=== PATIENT | male | born 1995 ===

== ENCOUNTER 2018-01-27 14:39 | Emergency (ER) | payer MEDICAID ==
[2018-01-27 14:40] VITALS: BMI 24.1
[2018-01-27 15:09] VITALS: RESP 16
--- NOTE | 2018-01-27 16:38 | US ---
Date of service: 01/27/2018 HISTORY: pain, swelling, hx of torsion TECHNIQUE: Realtime sonography through the scrotum with color and doppler flow. COMPARISON: 11/29/2015 bilateral testicular ultrasound FINDINGS: RIGHT TESTICLE: Measures 1.9 x 2.6 x 5.2 cm. Normal echotexture and flow. RIGHT EPIDIDYMIS: Epididymal head measures 1 x 0.6 x 1.1 cm. She LEFT TESTICLE: Measures 2.4 x 4.4 x 3 cm. Normal echotexture and flow. LEFT EPIDIDYMIS: Epididymal head measures 0.6 x 0.9 x 1.2 cm. Grossly unremarkable appearance with normal flow. HYDROCELE: Trace left hydrocele VARICOCELE: None. OTHER FINDINGS: None. IMPRESSION: Negative study for torsion, epididymitis, orchitis or testicular mass.
[2018-01-27 16:40] VITALS: O2SAT 98
[2018-01-27 16:54] LABS: URINE BACTERIA FEW (<OCC); URINE BILIRUBIN NEGATIVE (NEGATIVE); URINE BLOOD NEGATIVE (NEGATIVE); URINE CLARITY SLIGHTY-CLOUDY (Clear); URINE COLOR YELLOW (YELLOW); URINE GLUCOSE (UA) NEG (NEGATIVE); URINE LEUKOCYTE ESTERASE NEG Leu/uL (Negative); URINE PROTEIN 30 mg/dL (NEGATIVE)
[2018-01-27 17:00] LABS: URINE AMORPHOUS SEDIMENT FEW /ul (<OCC)
--- NOTE | 2018-01-27 18:17 | ED PDOC ---
HPI: Male Pain Time Seen by Provider: 01/27/18 15:01 Chief Complaint (Nursing): Male Genitourinary Past Medical History Vital Signs: Last Vital Signs Temp 98.3 F 01/27/18 16:38 Pulse 70 01/27/18 16:38 Resp 16 01/27/18 16:38 BP 122/70 01/27/18 16:38 Pulse Ox 98 01/27/18 16:38 - Medical History PMH: Denies: Chronic Kidney Disease - Family History Family History: States: Unknown Family Hx - Immunization History Hx Tetanus Toxoid Vaccination: No Hx Influenza Vaccination: No Hx Pneumococcal Vaccination: No - Home Medications Home Medications: Ambulatory Orders Medication Instructions Recorded Acetaminophen/Codeine 1 ea PO Q6 PRN #10 tab 08/22/17 [Tylenol/Codeine 300 MG/30 MG] - Allergies Allergies/Adverse Reactions: Allergies Allergy/AdvReac Type Severity Reaction Status Date / Time No Known Allergies Allergy Verified 08/22/17 22:20 - ECG O2 Sat by Pulse Oximetry: 98 Disposition - Clinical Impression Clinical Impression: Testicular pain, left - Patient ED Disposition Is Patient to be Admitted: No Counseled Patient/Family Regarding: Diagnosis, Need For Followup - Disposition Referrals: Malcolm Dawson MD [Medical Doctor] - Disposition: Routine/Home Disposition Time: 18:16 Condition: GOOD Additional Instructions: Motrin as needed for pain. Please follow-up with urologist. Instructions: How to Perform a Testicular Self-Exam Forms: [employer] (Urdu)
[2018-01-27 18:59] VITALS: BP 118/68; PULSE 68; TEMP 97.8
== END 2018-01-27 18:45 | disposition home or self-care (01) ==
LOC: H.ER 14:39
DX: N50.819 Testicular pain, unspecified (principal)

== ENCOUNTER 2018-02-12 15:00 | Emergency (ER) | payer MEDICAID ==
[2018-02-12 15:01] VITALS: BMI 24.1
--- NOTE | 2018-02-12 15:32 | ED PDOC ---
HPI: Influenza Time Seen by Provider: 02/12/18 15:14 Chief Complaint: Flu-like Symptoms Chief Complaint (Provider): Flu-like Symptoms History Per: Patient Exam Limitations: no limitations Have you had recent travel within the past 21 days to any of: No Onset/Duration Of Symptoms: Days (x3) Sick Contacts (Context): None Additional complaint(s):: Patient is a 22 y/o male with no significant PMHx who presents to the ED for evaluation of flu-like symptoms, onset three days ago. The pt reports of experiencing fever, chills, body aches, cough productive of white sputum, and generalized weakness. The pt reports of 2 episodes of non bloody, non-bilious vomiting and 2 episodes of watery, non-bloody diarrhea last night. Pt notes of a sore throat this morning. Pt reports of taking Naprocyn with minimal relief. The pt denies recent travel and sick contacts. PCP: none provided Past Medical History Reviewed: Historical Data, Nursing Documentation, Vital Signs Vital Signs: Last Vital Signs Temp 100.6 F H 02/12/18 15:08 Pulse 92 H 02/12/18 15:08 Resp 20 02/12/18 15:08 BP 113/50 L 02/12/18 15:08 Pulse Ox 96 02/12/18 15:08 - Medical History PMH: No Chronic Diseases Denies: Chronic Kidney Disease - Surgical History Other surgeries: Testicular Torsion - Family History Family History: States: No Known Family Hx - Social History Current smoker - smoking cessation education provided: No - Immunization History Hx Tetanus Toxoid Vaccination: No Hx Influenza Vaccination: No Hx Pneumococcal Vaccination: No - Home Medications Home Medications: Ambulatory Orders Medication Instructions Recorded RX: Acetaminophen/Codeine 1 ea PO Q6 PRN #10 tab 08/22/17 [Tylenol/Codeine 300 MG/30 MG] Oseltamivir Cap [Tamiflu] 75 mg PO BID #10 cap 02/12/18 RX: Acetaminophen [Tylenol Extra 1,000 mg PO Q6 PRN #60 tablet 02/12/18 Strength] RX: Ibuprofen [Motrin Tab] 600 mg PO Q8 PRN #60 tab 02/12/18 - Allergies Allergies/Adverse Reactions: Allergies Allergy/AdvReac Type Severity Reaction Status Date / Time No Known Allergies Allergy Verified 02/12/18 15:07 Review of Systems ROS Statement: Except As Marked, All Systems Reviewed And Found Negative (as per HPI) Constitutional: Positive for: Fever, Chills, Weakness, Other (Body Aches) ENT: Positive for: Throat Pain (Sore) Respiratory: Positive for: Cough (white sputum). Negative for: Hemoptysis Gastrointestinal: Positive for: Vomiting (x2 episodes), Diarrhea (x2 episodes) Physical Exam - Reviewed Nursing Documentation Reviewed: Yes Vital Signs Reviewed: Yes - Physical Exam Appears: Positive for: No Acute Distress (but febrile and tired appearing) Head Exam: Positive for: ATRAUMATIC, NORMOCEPHALIC Skin: Positive for: Warm, Dry Eye Exam: Positive for: EOMI, PERRL ENT: Positive for: Tonsillar Swelling, Other (Bilateral Erythematous Tonsils; Moist Mucuous Membrane). Negative for: Tonsillar Exudate Neck: Positive for: Painless ROM, Supple Cardiovascular/Chest: Positive for: Regular Rate, Rhythm, Chest Non Tender. Negative for: Murmur Respiratory: Positive for: Normal Breath Sounds. Negative for: Rales, Wheezing, Respiratory Distress Gastrointestinal/Abdominal: Positive for: Soft. Negative for: Tenderness Back: Positive for: Normal Inspection Extremity: Positive for: Normal ROM. Negative for: Deformity Lymphatic: Negative for: Adenopathy Neurologic/Psych: Positive for: Alert. Negative for: Motor/Sensory Deficits Medical Decision Making Medical Decision Making: Time: 1524 Impression: Flu like illness DDx includes but not limited to PNA, Strep Throat, and Viral Syndrome. Plan: - CXR (Two Views) - Tamiflu 75 mg PO - Toradol 30 mg IM - Tylenol 975 mg PO - Zofran 4 mg PO - Rapid Strep Group A Antigen Time:1550 CXR FINDINGS: LUNGS: No active pulmonary disease. PLEURA: No significant pleural effusion identified. No pneumothorax apparent. CARDIOVASCULAR: No aortic atherosclerotic calcification present. Normal cardiac size. No pulmonary vascular congestion. OSSEOUS STRUCTURES: No significant abnormalities. VISUALIZED UPPER ABDOMEN: Normal. OTHER FINDINGS: None. IMPRESSION: No active disease. - Scribe Attestation: Documented by Hao Blackmon, acting as a scribe for Desiree Sandhu MD. Provider Scribe Attestation: All medical record entries made by the Scribe were at my direction and personally dictated by me. I have reviewed the chart and agree that the record accurately reflects my personal performance of the history, physical exam, medical decision making, and the department course for this patient. I have also personally directed, reviewed, and agree with the discharge instructions and disposition. Time: 1800 -- On re-evaluation, patient reports of feeling better. Fever has improved. Discussed with patient findings. Reasons to return to the ER reviewed with Patient. Patient is stable for discharge home with a diagnosis of influenza-like symptoms. Scribe Attestation: Documented by Andrew Whelan, acting as a scribe for Desiree Sandhu MD. Provider Scribe Attestation: All medical record entries made by the Scribe were at my direction and personally dictated by me. I have reviewed the chart and agree that the record accurately reflects my personal performance of the history, physical exam, medical decision making, and the department course for this patient. I have also personally directed, reviewed, and agree with the discharge instructions and disposition. - ECG O2 Sat by Pulse Oximetry: 96 (RA) Pulse Ox Interpretation: Normal Disposition - Clinical Impression Clinical Impression: Influenza-like symptoms - Patient ED Disposition Is Patient to be Admitted: No Counseled Patient/Family Regarding: Studies Performed, Diagnosis, Need For Followup, Rx Given - Disposition Referrals: [facility] [Outside] - 02/18/18 Disposition: Routine/Home Disposition Time: 18:00 Condition: IMPROVED Additional Instructions: REST AND DRINK PLENTY OF HYDRATING FLUIDS Prescriptions: RX: Acetaminophen [Tylenol Extra Strength] 1,000 mg PO Q6 PRN #60 tablet PRN Reason: FEVER OR PAIN RX: Ibuprofen [Motrin Tab] 600 mg PO Q8 PRN #60 tab PRN Reason: Pain, Moderate (4-7) Oseltamivir Cap [Tamiflu] 75 mg PO BID #10 cap Instructions: Flu, Viral Syndrome (DC) Forms: [facility] ED School/Work Excuse
--- NOTE | 2018-02-12 15:54 | RAD ---
Date of service: 02/12/2018 HISTORY: fever cough vomit COMPARISON: No prior. TECHNIQUE: Chest PA and lateral FINDINGS: LUNGS: No active pulmonary disease. PLEURA: No significant pleural effusion identified. No pneumothorax apparent. CARDIOVASCULAR: No aortic atherosclerotic calcification present. Normal cardiac size. No pulmonary vascular congestion. OSSEOUS STRUCTURES: No significant abnormalities. VISUALIZED UPPER ABDOMEN: Normal. OTHER FINDINGS: None. IMPRESSION: No active disease.
[2018-02-12 17:03] VITALS: RESP 18
[2018-02-12 17:33] VITALS: TEMP 99.8
[2018-02-12 18:02] VITALS: BP 100/61; PULSE 77
[2018-02-12 18:16] VITALS: O2SAT 96
== END 2018-02-12 18:03 | disposition home or self-care (01) ==
LOC: H.ER 15:00
DX: J11.00 Influenza due to unidentified influenza virus with unspecified type of pneumonia (principal)
CPT/HCPCS: 71046; 87070; 87430; 96372; 99284; J1885

== ENCOUNTER 2018-02-15 16:28 | Observation (INO) | payer MEDICAID ==
[2018-02-15 16:28] VITALS: BMI 24.1
--- NOTE | 2018-02-15 17:56 | ED PDOC ---
HPI: Influenza Time Seen by Provider: 02/15/18 17:36 Chief Complaint: Flu-like Symptoms Chief Complaint (Provider): Flu-like Symptoms History Per: Patient Exam Limitations: no limitations Onset/Duration Of Symptoms: Days (x5) Additional complaint(s):: 22 year old male presents to the ED for evaluation of flu-like symptoms, including fever, throat pain and generalized weakness, for the past five days. Patient notes that at onset, he was seen here and diagnosed with the flu and tested negative for strep, since having worsening symptoms. Reports taking Tylenol along with "sweating out" his fevers with transient relief. PMD: none provided Past Medical History Reviewed: Historical Data, Nursing Documentation, Vital Signs Vital Signs: Last Vital Signs Temp 97.9 F 02/15/18 17:05 Pulse 84 02/15/18 17:05 Resp 18 02/15/18 17:05 BP 107/52 L 02/15/18 17:05 Pulse Ox 98 02/15/18 17:05 - Medical History PMH: No Chronic Diseases Denies: Chronic Kidney Disease - Surgical History Other surgeries: testicle torsion with surgery. - Family History Family History: States: Unknown Family Hx - Social History Current smoker - smoking cessation education provided: No Alcohol: None Drugs: Denies - Immunization History Hx Tetanus Toxoid Vaccination: No Hx Influenza Vaccination: No Hx Pneumococcal Vaccination: No - Home Medications Home Medications: Ambulatory Orders Medication Instructions Recorded Acetaminophen/Codeine 1 ea PO Q6 PRN #10 tab 08/22/17 [Tylenol/Codeine 300 MG/30 MG] Acetaminophen [Tylenol Extra 1,000 mg PO Q6 PRN #60 tablet 02/12/18 Strength] Ibuprofen [Motrin Tab] 600 mg PO Q8 PRN #60 tab 02/12/18 Oseltamivir Cap [Tamiflu] 75 mg PO BID #10 cap 02/12/18 - Allergies Allergies/Adverse Reactions: Allergies Allergy/AdvReac Type Severity Reaction Status Date / Time No Known Allergies Allergy Verified 02/12/18 15:07 Review of Systems ROS Statement: Except As Marked, All Systems Reviewed And Found Negative Constitutional: Positive for: Fever, Weakness (generalized) ENT: Positive for: Throat Pain Respiratory: Positive for: Cough Gastrointestinal: Negative for: Nausea, Vomiting, Abdominal Pain, Diarrhea Genitourinary Male: Negative for: Dysuria Musculoskeletal: Negative for: Neck Pain, Leg Pain Skin: Negative for: Rash Physical Exam - Reviewed Nursing Documentation Reviewed: Yes Vital Signs Reviewed: Yes - Physical Exam Appears: Positive for: Well, Non-toxic, No Acute Distress. Negative for: Uncomfortable Head Exam: Positive for: ATRAUMATIC, NORMAL INSPECTION, NORMOCEPHALIC Skin: Positive for: Normal Color, Warm Eye Exam: Positive for: Normal appearance, EOMI, PERRL. Negative for: Nystagmus, Periorbital swelling, Periorbital tenderness ENT: Positive for: Normal ENT Inspection, Tonsillar Swelling (+2/+3 with erythem a bilaterally). Negative for: Tonsillar Exudate Neck: Positive for: Normal, Painless ROM, Supple. Negative for: Decreased ROM Cardiovascular/Chest: Positive for: Regular Rate, Rhythm Respiratory: Positive for: Normal Breath Sounds. Negative for: Crackles, Rales, Rhonchi, Respiratory Distress Pulses-Carotid (L): 2+ Pulses-Carotid (R): 2+ Pulses-Radial (L): 2+ Pulses-Radial (R): 2+ Lymphatic: Positive for: Other (cervical nodes +2 swelling) Neurologic/Psych: Positive for: Alert, Oriented (x3) Medical Decision Making Medical Decision Making: Time: 1743 Initial Impression: flu-like symptoms, r/o strep Initial Plan: --CMP --CBC with differential --Influenza A B swab --Rapid strep swab --Urinalysis Pt is neutropenic with WBC 1.3 and a differential of 37%; pt liver enzymes also elevated 2:1 (AST/ALT); HIV test negative Lactate within normal limits Pt is afebrile Called Dr Vallejo, will admit to med/surg and he will contact hematology ----- Scribe Attestation: Documented by Laya Youngblood, acting as a scribe for Maxi Perez PA-C. Provider Scribe Attestation: All medical record entries made by the Scribe were at my direction and person ally dictated by me. I have reviewed the chart and agree that the record accurately reflects my personal performance of the history, physical exam, medical decision making, and the department course for this patient. I have also personally directed, reviewed, and agree with the discharge instructions and disposition. - Laboratory Results Result Diagrams: 02/15/18 18:07 02/15/18 18:07 - ECG O2 Sat by Pulse Oximetry: 98 (RA) Pulse Ox Interpretation: Normal Disposition - Clinical Impression Clinical Impression: Neutropenia - Patient ED Disposition Is Patient to be Admitted: Yes Discussed With DrShayla: Hank Quiñonez (admit to [facility] and he will contact chana pfeiffer for consult) Doctor Will See Patient In The: Hospital Counseled Patient/Family Regarding: Studies Performed, Diagnosis - Disposition Disposition Time: 23:25 Condition: STABLE - Pt Status Changed To: Hospital Disposition Of: Inpatient - Admit Certification Admit to Inpatient:: After my assessment, the patient will require hospitalization for at least two midnights. This is because of the severity of symptoms shown, intensity of services needed, and/or the medical risk in this patient being treated as an outpatient.
[2018-02-15 19:26] LABS: BASO % 0.5 % (0.0-2.0); HEMOGLOBIN 13.9 g/dL (12.0-18.0); LYMPH # 0.6 K/uL (1.0-4.3); LYMPH % 47.5 % (20.0-40.0); MEAN CELL VOLUME 90.8 fl (80.0-94.0); MEAN CORPUSCULAR HEMOGLOBIN 29.1 pg (27.0-31.0); MEAN CORPUSCULAR HGB CONC 32.1 g/dL (33.0-37.0); MEAN PLATELET VOLUME 9.5 fl (7.2-11.7); MONO # 0.2 K/uL (0.0-0.8); MONO % 14.3 % (0.0-10.0); NEUT # 0.5 K/uL (1.8-7.0); NEUT % 37.7 % (50.0-75.0); NRBC % 0.3 % (0.0-0.0); RBC 4.77 Mil/uL (4.40-5.90); RED CELL DISTRIBUTION WIDTH 13.3 % (11.5-14.5)
[2018-02-15 19:41] LABS: WHITE BLOOD COUNT 1.3 K/uL (4.8-10.8)
[2018-02-15 19:45] LABS: ALBUMIN 3.9 g/dL (3.5-5.0); ALT/SGPT 179 U/L (21-72); AST/SGOT 234 U/L (17-59); BLOOD UREA NITROGEN 14 mg/dl (9-20); CALCIUM 8.2 mg/dL (8.4-10.2); GFR NON-AFRICAN AMERICAN > 60
[2018-02-15] MEDS ORDERED: Sodium Chloride 0.9% 1,000 ML IV STA (20:07)
[2018-02-15 20:27] LABS: URINE BACTERIA RARE (<OCC); URINE BILIRUBIN NEGATIVE (NEGATIVE); URINE BLOOD NEGATIVE (NEGATIVE); URINE CLARITY SLIGHTY-CLOUDY (Clear); URINE COLOR YELLOW (YELLOW); URINE GLUCOSE (UA) NEG (NEGATIVE); URINE LEUKOCYTE ESTERASE NEG Leu/uL (Negative); URINE PROTEIN 30 mg/dL (NEGATIVE)
[2018-02-15] MEDS ORDERED: Sodium Chloride 0.9% 1,000 ML IV SCH (21:45)
[2018-02-16] MEDS ORDERED: ACETAMINOPHEN 1000 MG PO PRN (11:14)
[2018-02-16] MEDS ORDERED: IBUPROFEN 600 MG PO PRN (11:14)
[2018-02-16] MEDS ORDERED: Acetaminophen 650mg/20.3ml solution UD PO PRN ×2 (14:12→14:15)
[2018-02-16 14:50] LABS: BLOOD UREA NITROGEN 8 mg/dl (9-20); CALCIUM 8.1 mg/dL (8.4-10.2); GFR NON-AFRICAN AMERICAN > 60
[2018-02-16 14:51] LABS: ALBUMIN 3.6 g/dL (3.5-5.0); ALT/SGPT 213 U/L (21-72); AST/SGOT 284 U/L (17-59)
[2018-02-16 15:45] VITALS: O2SAT 98
[2018-02-16 16:03] LABS: FOLATE 14.2 ng/mL
[2018-02-16 16:09] LABS: BASO % 0.3 % (0.0-2.0); EOS % 0.1 % (0.0-4.0); LYMPH # 0.9 K/uL (1.0-4.3); LYMPH % 42.2 % (20.0-40.0); MEAN CELL VOLUME 88.6 fl (80.0-94.0); MEAN CORPUSCULAR HEMOGLOBIN 29.2 pg (27.0-31.0); MEAN CORPUSCULAR HGB CONC 32.9 g/dL (33.0-37.0); MEAN PLATELET VOLUME 9.1 fl (7.2-11.7); MONO # 0.3 K/uL (0.0-0.8); MONO % 12.1 % (0.0-10.0); NEUT % 45.3 % (50.0-75.0); NRBC % 0.3 % (0.0-0.0); RBC 4.46 Mil/uL (4.40-5.90); RED CELL DISTRIBUTION WIDTH 13.6 % (11.5-14.5); WHITE BLOOD COUNT 2.1 K/uL (4.8-10.8)
[2018-02-16] MEDS ORDERED: OSELTAMIVIR 75 MG PO SCH (17:00)
--- NOTE | 2018-02-16 21:01 | CP.PCM.CON ---
Past Patient History - Infectious Disease Hx of Infectious Diseases: None - Past Social History Alcohol: None Drugs: Denies - CARDIAC Hx Cardiac Disorders: No - PULMONARY Hx Respiratory Disorders: No - NEUROLOGICAL Hx Neurological Disorder: No - HEENT Hx HEENT Problems: No - RENAL Hx Chronic Kidney Disease: No - ENDOCRINE/METABOLIC Hx Endocrine Disorders: No - HEMATOLOGICAL/ONCOLOGICAL Hx Blood Disorders: No - INTEGUMENTARY Hx Dermatological Problems: No - MUSCULOSKELETAL/RHEUMATOLOGICAL Hx Musculoskeletal Disorders: No - GASTROINTESTINAL Hx Gastrointestinal Disorders: No - GENITOURINARY/GYNECOLOGICAL Hx Genitourinary Disorders: No - PSYCHIATRIC Hx Psychophysiologic Disorder: No Hx Substance Use: No - SURGICAL HISTORY Hx Surgeries: Yes Other/Comment: testicle torsion with surgery. - ANESTHESIA Hx Anesthesia: Yes Hx Anesthesia Reactions: No Meds Allergies/Adverse Reactions: Allergies Allergy/AdvReac Type Severity Reaction Status Date / Time No Known Allergies Allergy Verified 02/12/18 15:07 - Medications Medications: Current Medications Acetaminophen (Tylenol 650mg/20.3ml Solution Ud) 1,000 mg PO Q6H PRN PRN Reason: FOR FEVER OR PAIN Sodium Chloride (Sodium Chloride 0.9%) 1,000 mls @ 1,000 mls/hr IV .Q1H KASANDRA Stop: 02/16/18 21:43 Last Admin: 02/15/18 21:55 Dose: 1,000 mls/hr Ibuprofen (Motrin Tab) 600 mg PO Q8H PRN PRN Reason: Pain, moderate (4-7) Last Admin: 02/16/18 15:55 Dose: 600 mg Oseltamivir Phosphate (Tamiflu Cap) 75 mg PO BID KASANDRA Last Admin: 02/16/18 15:56 Dose: 75 mg Results - Vital Signs Recent Vital Signs: Last Vital Signs Temp 98.1 F 02/16/18 20:40 Pulse 77 02/16/18 20:40 Resp 18 02/16/18 20:40 BP 116/63 02/16/18 20:40 Pulse Ox 98 02/16/18 20:40 - Labs Result Diagrams: 02/16/18 12:00 02/16/18 12:32 Labs: Laboratory Results - last 24 hr 02/15/18 02/16/18 02/16/18 20:40 06:07 06:07 WBC RBC Hgb Hct MCV MCH MCHC RDW Plt Count MPV Neut % (Auto) Lymph % (Auto) Norman % (Auto) Eos % (Auto) Baso % (Auto) Neut # (Auto) Lymph # (Auto) Norman # (Auto) Eos # (Auto) Baso # (Auto) ESR 25 H Sodium Potassium Chloride Carbon Dioxide Anion Gap BUN Creatinine Est GFR ( Amer) Est GFR (Non-Af Amer) Random Glucose Calcium Phosphorus Cancelled Magnesium Cancelled Total Bilirubin AST ALT Alkaline Phosphatase C-Reactive Protein < 5.00 Total Protein Albumin Globulin Albumin/Globulin Ratio Vitamin B12 763 Folate 14.2 TSH 3rd Generation 2.77 HIV-1 Ab Rapid Screen Non reactive 02/16/18 02/16/18 12:00 12:32 WBC 2.1 L D RBC 4.46 Hgb 13.0 Hct 39.5 MCV 88.6 D MCH 29.2 MCHC 32.9 L RDW 13.6 Plt Count 117 L MPV 9.1 Neut % (Auto) 45.3 L Lymph % (Auto) 42.2 H Norman % (Auto) 12.1 H Eos % (Auto) 0.1 Baso % (Auto) 0.3 Neut # (Auto) 1.0 L Lymph # (Auto) 0.9 L Norman # (Auto) 0.3 Eos # (Auto) 0.0 Baso # (Auto) 0.0 ESR Sodium 138 Potassium 4.5 Chloride 101 Carbon Dioxide 29 Anion Gap 13 BUN 8 L Creatinine 0.7 L Est GFR ( Amer) > 60 Est GFR (Non-Af Amer) > 60 Random Glucose 99 Calcium 8.1 L Phosphorus 3.0 Magnesium 2.0 Total Bilirubin 0.4 AST 284 H D ALT 213 H Alkaline Phosphatase 85 C-Reactive Protein Total Protein 7.2 Albumin 3.6 Globulin 3.6 Albumin/Globulin Ratio 1.0 Vitamin B12 Folate TSH 3rd Generation HIV-1 Ab Rapid Screen
[2018-02-17 02:39] VITALS: RESP 20
--- NOTE | 2018-02-17 07:02 | CP.PCM.PCO ---
Physician Communication Note - Physician Communication Note Physician Communication Note: Cough
[2018-02-17 07:42] LABS: BASO % 0.3 % (0.0-2.0); EOS % 0.5 % (0.0-4.0); HEMOGLOBIN 13.8 g/dL (12.0-18.0); LYMPH # 0.8 K/uL (1.0-4.3); LYMPH % 40.3 % (20.0-40.0); MEAN CELL VOLUME 88.8 fl (80.0-94.0); MEAN CORPUSCULAR HGB CONC 32.6 g/dL (33.0-37.0); MEAN PLATELET VOLUME 8.9 fl (7.2-11.7); MONO # 0.3 K/uL (0.0-0.8); MONO % 13.9 % (0.0-10.0); NEUT # 0.9 K/uL (1.8-7.0); NRBC % 0.3 % (0.0-0.0); RBC 4.78 Mil/uL (4.40-5.90); RED CELL DISTRIBUTION WIDTH 13.8 % (11.5-14.5); WHITE BLOOD COUNT 2.1 K/uL (4.8-10.8)
[2018-02-17 12:46] VITALS: BP 103/50; PULSE 71; TEMP 97.4
[2018-02-17 13:03] LABS: HEPATITIS B SURFACE AG Negative (NEGATIVE)
[2018-02-17 13:09] LABS: HEPATITIS A IGM NEGATIVE (NEGATIVE); HEPATITIS B CORE AB NEGATIVE (NEGATIVE)
[2018-02-17 13:20] LABS: HEPATITIS C ANTIBODY NEGATIVE (NEGATIVE)
--- NOTE | 2018-02-17 13:59 | CP.PCM.HP ---
History of Present Illness - History of Present Illness History of Present Illness: CC: Fever, Throat pain and Generalized Weakness History of Present Illness: A 22 year old male presents to the ED for evaluation of flu-like symptoms, including fever, throat pain and generalized weakness, for the past five days. Patient notes that at onset, he was seen here and diagnosed with the flu and tested negative for strep, since having worsening symptoms. Reports taking Tylenol along with some relief. In the ER, patient was found to have Severe Leukopenia and Neutropenia with absolute Neurophil level of 480, and Thrombo cytopenia. H/O Leukopnia since child lopez. Rapid HIV was negative in the ER. Also C/O productive cough of yellowish green. +Chills. Denies fever. Present on Admission - Present on Admission Any Indicators Present on Admission: No Review of Systems - Review of Systems All systems: reviewed and no additional remarkable complaints except Review of Systems: as per HPI Past Patient History - Infectious Disease Hx of Infectious Diseases: None - Past Medical History & Family History Past Medical History?: No Past Family History: Reviewed and not pertinent - Past Social History Smoking Status: Never Smoked Alcohol: Social Drugs: Denies - CARDIAC Hx Cardiac Disorders: No - PULMONARY Hx Respiratory Disorders: No - NEUROLOGICAL Hx Neurological Disorder: No - HEENT Hx HEENT Problems: No - RENAL Hx Chronic Kidney Disease: No - ENDOCRINE/METABOLIC Hx Endocrine Disorders: No - HEMATOLOGICAL/ONCOLOGICAL Hx Blood Disorders: No - INTEGUMENTARY Hx Dermatological Problems: No - MUSCULOSKELETAL/RHEUMATOLOGICAL Hx Musculoskeletal Disorders: No - GASTROINTESTINAL Hx Gastrointestinal Disorders: No - GENITOURINARY/GYNECOLOGICAL Hx Genitourinary Disorders: No - PSYCHIATRIC Hx Psychophysiologic Disorder: No - SURGICAL HISTORY Hx Surgeries: Yes Other/Comment: testicle torsion with surgery. - ANESTHESIA Hx Anesthesia: Yes Hx Anesthesia Reactions: No Meds Home Medications: Home Medication List Medication Instructions Recorded Confirmed Type Acetaminophen [Tylenol 1,000 mg PO Q6H PRN udc 02/17/18 Rx 650mg/20.3ml solution UD] Amoxicillin/Clavulanate [Augmentin 1 tab PO BID #14 tab 02/17/18 Rx 875 MG-125 MG] Allergies/Adverse Reactions: Allergies Allergy/AdvReac Type Severity Reaction Status Date / Time No Known Allergies Allergy Verified 02/12/18 15:07 Physical Exam - Constitutional Appears: Well, No Acute Distress - Head Exam Head Exam: ATRAUMATIC, NORMAL INSPECTION, NORMOCEPHALIC - Eye Exam Eye Exam: EOMI, Normal appearance, PERRL Pupil Exam: NORMAL ACCOMODATION, PERRL - ENT Exam ENT Exam: Normal Exam Additional comments: B/L Tonsilar enlargement with Exudative over the tonsils with erythema. - Neck Exam Neck exam: Positive for: Normal Inspection - Respiratory Exam Respiratory Exam: Clear to Auscultation Bilateral, NORMAL BREATHING PATTERN - Cardiovascular Exam Cardiovascular Exam: REGULAR RHYTHM, +S1, +S2 - GI/Abdominal Exam GI & Abdominal Exam: Normal Bowel Sounds, Soft. absent: Tenderness - Extremities Exam Extremities exam: Positive for: normal capillary refill, normal inspection - Back Exam Back exam: NORMAL INSPECTION - Neurological Exam Neurological exam: Alert, CN II-XII Intact, Normal Gait, Oriented x3, Reflexes Normal - Psychiatric Exam Psychiatric exam: Normal Affect, Normal Mood - Skin Skin Exam: Dry, Intact, Normal Color, Warm Results - Vital Signs Recent Vital Signs: Last Vital Signs Temp 97.4 F L 02/17/18 08:20 Pulse 71 02/17/18 08:20 Resp 20 02/17/18 08:20 BP 103/50 L 02/17/18 08:20 Pulse Ox 98 02/17/18 08:20 - Labs Result Diagrams: 02/17/18 07:27 02/16/18 12:32 Labs: Laboratory Results - last 24 hr 02/16/18 02/16/18 02/16/18 06:07 06:07 12:00 WBC 2.1 L D RBC 4.46 Hgb 13.0 Hct 39.5 MCV 88.6 D MCH 29.2 MCHC 32.9 L RDW 13.6 Plt Count 117 L MPV 9.1 Neut % (Auto) 45.3 L Lymph % (Auto) 42.2 H [place] % (Auto) 12.1 H Eos % (Auto) 0.1 Baso % (Auto) 0.3 Neut # (Auto) 1.0 L Lymph # (Auto) 0.9 L [place] # (Auto) 0.3 Eos # (Auto) 0.0 Baso # (Auto) 0.0 Sodium Potassium Chloride Carbon Dioxide Anion Gap BUN Creatinine Est GFR ( Amer) Est GFR (Non-Af Amer) Random Glucose Calcium Phosphorus Cancelled Magnesium Cancelled Total Bilirubin AST ALT Alkaline Phosphatase C-Reactive Protein < 5.00 Total Protein Albumin Globulin Albumin/Globulin Ratio Vitamin B12 763 Folate 14.2 TSH 3rd Generation 2.77 RITA Nuclear Membr Pat Negative Hepatitis A IgM Ab Hep Bs Antigen Hep B Core IgM Ab Hepatitis C Antibody Infectious [place] Assay 02/16/18 02/17/18 02/17/18 12:32 07:27 07:27 WBC 2.1 L RBC 4.78 Hgb 13.8 Hct 42.4 MCV 88.8 MCH 29.0 MCHC 32.6 L RDW 13.8 Plt Count 143 MPV 8.9 Neut % (Auto) 45.0 L Lymph % (Auto) 40.3 H [place] % (Auto) 13.9 H Eos % (Auto) 0.5 Baso % (Auto) 0.3 Neut # (Auto) 0.9 L Lymph # (Auto) 0.8 L [place] # (Auto) 0.3 Eos # (Auto) 0.0 Baso # (Auto) 0.0 Sodium 138 Potassium 4.5 Chloride 101 Carbon Dioxide 29 Anion Gap 13 BUN 8 L Creatinine 0.7 L Est GFR ( Amer) > 60 Est GFR (Non-Af Amer) > 60 Random Glucose 99 Calcium 8.1 L Phosphorus 3.0 Magnesium 2.0 Total Bilirubin 0.4 AST 284 H D ALT 213 H Alkaline Phosphatase 85 C-Reactive Protein Total Protein 7.2 Albumin 3.6 Globulin 3.6 Albumin/Globulin Ratio 1.0 Vitamin B12 Folate TSH 3rd Generation RITA Nuclear Membr Pat Hepatitis A IgM Ab Negative Hep Bs Antigen Negative Hep B Core IgM Ab Negative Hepatitis C Antibody Negative Infectious [place] Assay 02/17/18 08:48 WBC RBC Hgb Hct MCV MCH MCHC RDW Plt Count MPV Neut % (Auto) Lymph % (Auto) [place] % (Auto) Eos % (Auto) Baso % (Auto) Neut # (Auto) Lymph # (Auto) [place] # (Auto) Eos # (Auto) Baso # (Auto) Sodium Potassium Chloride Carbon Dioxide Anion Gap BUN Creatinine Est GFR ( Amer) Est GFR (Non-Af Amer) Random Glucose Calcium Phosphorus Magnesium Total Bilirubin AST ALT Alkaline Phosphatase C-Reactive Protein Total Protein Albumin Globulin Albumin/Globulin Ratio Vitamin B12 Folate TSH 3rd Generation RITA Nuclear Membr Pat Hepatitis A IgM Ab Hep Bs Antigen Hep B Core IgM Ab Hepatitis C Antibody Infectious [place] Assay Positive H Assessment & Plan (1) Thrombocytopenia Status: Acute Priority: High (2) Generalized weakness Status: Acute Priority: High (3) Acute tonsillitis Status: Acute Priority: High (4) Acute bronchitis Status: Acute (5) Neutropenia Status: Acute Priority: High - Assessment and Plan (Free Text) Plan: IVF IV Unasyn Tylenol or Motrin PRN Autoimmune work Up ESR, CRP TSH ID and [employer] Supervisor consulted Counselled to Quit ETOH use Monitor CMP and CBC with diff
--- NOTE | 2018-02-17 23:54 | CP.PCM.DIS ---
Provider - Provider Date of Admission: 02/15/18 23:06 Attending physician: Hank Quiñonez MD Consults: 02/16/18 00:02 Hematology Oncology Consult Stat Comment: Consulting Provider: Deuce Angulo Consulting Physician: Deuce Angulo Reason for Consult: Neutopenia and Thrombocytopenia Time Spent in preparation of Discharge (in minutes): 25 Diagnosis - Discharge Diagnosis (1) Thrombocytopenia Status: Acute Priority: High (2) Generalized weakness Status: Acute Priority: High (3) Acute tonsillitis Status: Acute Priority: High (4) Acute bronchitis Status: Acute (5) Neutropenia Status: Acute Priority: High Hospital Course - Lab Results Lab Results: Micro Results 02/15/18 20:45 Blood Blood Culture - Preliminary NO GROWTH AFTER 48 HOURS 02/15/18 20:15 Blood Blood Culture - Preliminary NO GROWTH AFTER 48 HOURS 02/15/18 18:07 Throat Group A Strep Throat Culture - Final NO BETA STREP GROUP A ISOLATED. 02/15/18 20:15 Urine Urine Culture - Final No Growth (<1,000 CFU/ML) Most Recent Lab Values WBC 2.1 K/uL (4.8-10.8) L 02/17/18 07:27 RBC 4.78 Mil/uL (4.40-5.90) 02/17/18 07:27 Hgb 13.8 g/dL (12.0-18.0) 02/17/18 07:27 Hct 42.4 % (35.0-51.0) 02/17/18 07:27 MCV 88.8 fl (80.0-94.0) 02/17/18 07:27 MCH 29.0 pg (27.0-31.0) 02/17/18 07:27 MCHC 32.6 g/dL (33.0-37.0) L 02/17/18 07:27 RDW 13.8 % (11.5-14.5) 02/17/18 07:27 Plt Count 143 K/uL (130-400) 02/17/18 07:27 MPV 8.9 fl (7.2-11.7) 02/17/18 07:27 Neut % (Auto) 45.0 % (50.0-75.0) L 02/17/18 07:27 Lymph % (Auto) 40.3 % (20.0-40.0) H 02/17/18 07:27 [place] % (Auto) 13.9 % (0.0-10.0) H 02/17/18 07:27 Eos % (Auto) 0.5 % (0.0-4.0) 02/17/18 07:27 Baso % (Auto) 0.3 % (0.0-2.0) 02/17/18 07:27 Neut # (Auto) 0.9 K/uL (1.8-7.0) L 02/17/18 07:27 Lymph # (Auto) 0.8 K/uL (1.0-4.3) L 02/17/18 07:27 [place] # (Auto) 0.3 K/uL (0.0-0.8) 02/17/18 07:27 Eos # (Auto) 0.0 K/uL (0.0-0.7) 02/17/18 07:27 Baso # (Auto) 0.0 K/uL (0.0-0.2) 02/17/18 07:27 ESR 25 mm/hr (0-15) H 02/16/18 06:07 Sodium 138 mmol/l (132-148) 02/16/18 12:32 Potassium 4.5 MMOL/L (3.6-5.0) 02/16/18 12:32 Chloride 101 mmol/L (98-107) 02/16/18 12:32 Carbon Dioxide 29 mmol/L (22-30) 02/16/18 12:32 Anion Gap 13 (10-20) 02/16/18 12:32 BUN 8 mg/dl (9-20) L 02/16/18 12:32 Creatinine 0.7 mg/dl (0.8-1.5) L 02/16/18 12:32 Est GFR ( Amer) > 60 02/16/18 12:32 Est GFR (Non-Af Amer) > 60 02/16/18 12:32 Random Glucose 99 mg/dL (75-110) 02/16/18 12:32 Lactic Acid 0.9 MMOL/L (0.7-2.1) 02/15/18 20:15 Calcium 8.1 mg/dL (8.4-10.2) L 02/16/18 12:32 Phosphorus 3.0 mg/dl (2.5-4.5) 02/16/18 12:32 Magnesium 2.0 MG/DL (1.6-2.3) 02/16/18 12:32 Total Bilirubin 0.4 mg/dl (0.2-1.3) 02/16/18 12:32 AST 284 U/L (17-59) H D 02/16/18 12:32 ALT 213 U/L (21-72) H 02/16/18 12:32 Alkaline Phosphatase 85 U/L (38-126) 02/16/18 12:32 C-Reactive Protein < 5.00 mg/L (0.0-9.9) 02/16/18 06:07 Total Protein 7.2 G/DL (6.3-8.2) 02/16/18 12:32 Albumin 3.6 g/dL (3.5-5.0) 02/16/18 12:32 Globulin 3.6 gm/dL (2.2-3.9) 02/16/18 12:32 Albumin/Globulin Ratio 1.0 (1.0-2.1) 02/16/18 12:32 Vitamin B12 763 pg/mL (239-931) 02/16/18 06:07 Folate 14.2 ng/mL 02/16/18 06:07 TSH 3rd Generation 2.77 mIU/ML (0.46-4.68) 02/16/18 06:07 Urine Color Yellow (YELLOW) 02/15/18 19:17 Urine Clarity Slighty-cloudy (Clear) 02/15/18 19:17 Urine pH 6.0 (5.0-8.0) 02/15/18 19:17 Ur Specific [place] 1.021 (1.003-1.030) 02/15/18 19:17 Urine Protein 30 mg/dL (NEGATIVE) 02/15/18 19:17 Urine Glucose (UA) Neg mg/dL (NEGATIVE) 02/15/18 19:17 Urine Ketones 20 mg/dL (NEGATIVE) 02/15/18 19:17 Urine Blood Negative (NEGATIVE) 02/15/18 19:17 Urine Nitrate Negative (NEGATIVE) 02/15/18 19:17 Urine Bilirubin Negative (NEGATIVE) 02/15/18 19:17 Urine Urobilinogen 2.0 mg/dL (0.2-1.0) 02/15/18 19:17 Ur Leukocyte Esterase Neg [place]/uL (Negative) 02/15/18 19:17 Urine RBC (Auto) 2 /hpf (0-3) 02/15/18 19:17 Urine Microscopic WBC 4 /hpf (0-5) 02/15/18 19:17 Urine Bacteria Rare (<OCC) 02/15/18 19:17 RITA Nuclear Membr Pat Negative (Negative) 02/16/18 06:07 Hepatitis A IgM Ab Negative (NEGATIVE) 02/17/18 07:27 Hep Bs Antigen Negative (NEGATIVE) 02/17/18 07:27 Hep B Core IgM Ab Negative (NEGATIVE) 02/17/18 07:27 Hepatitis C Antibody Negative (NEGATIVE) 02/17/18 07:27 HIV-1 Ab Rapid Screen Non reactive (NON REAC) 02/15/18 20:40 Infectious [place] Assay Positive (NEGATIVE) H 02/17/18 08:48 Influenza Typ A,B (EIA) Negative for flu a/b (NEGATIVE) 02/15/18 18:07 Grp A Beta Strep Ag Negative (NEGATIVE) 02/15/18 18:07 Discharge Exam - Head Exam Head Exam: ATRAUMATIC, NORMAL INSPECTION, NORMOCEPHALIC Discharge Plan - Discharge Medications Prescriptions: Amoxicillin/Clavulanate [Augmentin 875 MG-125 MG] 1 tab PO BID #14 tab - Follow Up Plan Condition: STABLE Disposition: HOME/ ROUTINE Instructions: Neutropenia, Mononucleosis Referrals: [facility] [place] [Outside]
[2018-02-21 02:07] LABS: ANCA SCREEN NEGATIVE (NEGATIVE)
== END 2018-02-17 14:50 | disposition home or self-care (01) ==
LOC: H.ER 16:28 → H.ERHOLD 23:06 → H.PEDS 02-17 00:20
PROVIDERS: ADMIT Internal Medicine; ATTEND Internal Medicine
DX: B27.90 Infectious mononucleosis, unspecified without complication (principal); D69.6 Thrombocytopenia, unspecified; J03.90 Acute tonsillitis, unspecified; J20.9 Acute bronchitis, unspecified; R53.1 Weakness; D70.9 Neutropenia, unspecified
CPT/HCPCS: 36415; 80053; 80074; 81003; 82607; 82746; 83605; 83735; 84100; 84443; 85025; 85651; 86021; 86038; 86140; 86255; 86308; 86663; 87040; 87070; 87086; 87390; 87430; 87804; 96360; 96361; 96365; 99284; G0378; J0295; J7030

== ENCOUNTER 2018-04-25 13:47 | Emergency (ER) | payer MEDICAID ==
[2018-04-25 13:47] VITALS: BMI 24.1
[2018-04-25 13:52] VITALS: RESP 20
--- NOTE | 2018-04-25 14:24 | ED PDOC ---
HPI: Male Pain Time Seen by Provider: 04/25/18 14:23 Chief Complaint (Nursing): Male Genitourinary Chief Complaint (Provider): TESTICULAR PAIN History Per: Patient (22 Y/O MALE HERE WITH LEFT TESTICULAR PAIN TODAY. PATIENT HAS H/O TORSION AND WAS ADVISED TO COME TO ED WHENEVER HE HAS PAIN. DENIES ANY DYSURIA/FEVERS/CHILLS. NOTES ADDITIONAL RASH.) Past Medical History Reviewed: Historical Data, Nursing Documentation, Vital Signs Vital Signs: Last Vital Signs Temp 98.2 F 04/25/18 13:51 Pulse 96 H 04/25/18 13:51 Resp 20 04/25/18 13:51 BP 130/67 04/25/18 13:51 Pulse Ox 97 04/25/18 13:51 - Medical History PMH: Denies: Chronic Kidney Disease - Family History Family History: States: Unknown Family Hx - Immunization History Hx Tetanus Toxoid Vaccination: No Hx Influenza Vaccination: No Hx Pneumococcal Vaccination: No - Home Medications Home Medications: Ambulatory Orders Medication Instructions Recorded Acetaminophen [Tylenol 1,000 mg PO Q6H PRN udc 02/17/18 650mg/20.3ml solution UD] Amoxicillin/Clavulanate [Augmentin 1 tab PO BID #14 tab 02/17/18 875 MG-125 MG] Butenafine HCl [Lotrimin Ultra] 0.5 gm TP BID #30 cream..g. 04/25/18 - Allergies Allergies/Adverse Reactions: Allergies Allergy/AdvReac Type Severity Reaction Status Date / Time No Known Allergies Allergy Verified 02/12/18 15:07 Review of Systems ROS Statement: Except As Marked, All Systems Reviewed And Found Negative Physical Exam - Reviewed Nursing Documentation Reviewed: Yes Vital Signs Reviewed: Yes - Physical Exam Appears: Positive for: Well, Non-toxic, No Acute Distress Head Exam: Positive for: ATRAUMATIC, NORMAL INSPECTION, NORMOCEPHALIC Skin: Positive for: Normal Color, Warm, DRY Eye Exam: Positive for: EOMI, Normal appearance, PERRL ENT: Positive for: Normal ENT Inspection Neck: Positive for: Normal, Painless ROM Cardiovascular/Chest: Positive for: Regular Rate, Rhythm Respiratory: Positive for: CNT, Normal Breath Sounds Gastrointestinal/Abdominal: Positive for: Normal Exam, Soft Back: Positive for: Normal Inspection Extremity: Positive for: Normal ROM Neurological/Psych: Positive for: Awake, Alert, Normal Tone - ECG O2 Sat by Pulse Oximetry: 97 - Progress ED Course And Treament: SCROTAL US: NEG Disposition - Clinical Impression Clinical Impression: Testicular pain, left, Tinea cruris - Patient ED Disposition Is Patient to be Admitted: No - Disposition Referrals: Malcolm Dawson MD [Medical Doctor] - Disposition: Routine/Home Disposition Time: 17:22 Condition: FAIR Prescriptions: Butenafine HCl [Lotrimin Ultra] 0.5 gm TP BID #30 cream..g. Instructions: Ringworm, Athlete's Foot, and Jock Itch
[2018-04-25 14:47] LABS: URINE BACTERIA RARE (<OCC); URINE BILIRUBIN NEGATIVE (NEGATIVE); URINE BLOOD NEGATIVE (NEGATIVE); URINE CLARITY SLIGHTY-CLOUDY (Clear); URINE COLOR YELLOW (YELLOW); URINE GLUCOSE (UA) NEG (NEGATIVE); URINE LEUKOCYTE ESTERASE NEG Leu/uL (Negative); URINE PROTEIN NEGATIVE (NEGATIVE); URINE UROBILINOGEN 0.2-1.0 mg/dL (0.2-1.0)
--- NOTE | 2018-04-25 16:05 | US ---
Date of service: 04/25/2018 HISTORY: TESTICULAR PAIN TECHNIQUE: Realtime sonography through the scrotum with color and doppler flow. COMPARISON: 11/29/2015 and 01/27/2018 serial testicular ultrasound studies. FINDINGS: RIGHT TESTICLE: Measures 3 x 3.3 x 5.0 cm. Normal echotexture and flow. RIGHT EPIDIDYMIS: Epididymal head measures 0.9 x 1.2 x 0.8 cm. Grossly unremarkable appearance with normal flow. LEFT TESTICLE: Measures 3.2 x 3.0 x 4.9 cm. Normal echotexture and flow. LEFT EPIDIDYMIS: Epididymal head measures 1 x 1.2 x 1.1 cm. Grossly unremarkable appearance with normal flow. HYDROCELE: Small, [id number] VARICOCELE: None. OTHER FINDINGS: None. IMPRESSION: Negative study for epididymitis, orchitis, torsion. No visible testicular mass. No significant interval change compared to the prior examination(s).
[2018-04-25 17:43] VITALS: BP 122/66; PULSE 80; TEMP 98.4; O2SAT 100
== END 2018-04-25 17:40 | disposition home or self-care (01) ==
LOC: H.ER 13:47
DX: N50.812 Left testicular pain (principal); B35.6 Tinea cruris